=== PATIENT | male | born 1950 | race Caucasian/White ===

== ENCOUNTER → 2022-12-08 | Outpatient (CLI) | payer MEDICARE ==
--- NOTE | 2022-12-08 12:11 | P.PN ---
Subjective DATE: 12/08/2022 FOLLOW UP VISIT. Patient with obstructive sleep apnea hypopnea syndrome return to sleep center for follow-up visit. Recently patient had sleep study which documented obstructive sleep apnea hypopnea syndrome. Patient was initiated on PAP therapy and today is first visit after treatment was started. Patient was able to use PAP equipment every night for the whole night. I explained to the patient is also sleep studies in details. The patient does not have significant problems with the mask, PAP pressure and humidification. [place] sleepiness scale is 3, which is normal. I checked information from PAP unit. PAP unit pressure 5-15, average 13.0 cm H2O. Usage is 90% and 83 % for more then 4 hours, average 6.5 hours per night. Leak is 14.2 l/m, which is in acceptable range. Apnea Hypopnea Index is 3.1, which is normal. MEDICATIONS:1. Isosorbide 30 mg once a day 2. Atorvastatin 20 mg once a day 3. Metoprolol 50 mg once a day 4. Lisinopril 5 mg once a day 5. Aspirin 81 mg once a day During physical exam: GENERAL: A pleasant patient without any distress. VITAL SIGNS: BP 147/72, HR 50, RR 16 , weight 202, temperature 97.8, oxygen saturation at room air 98% . HEENT: PERRLA, EOMI.low position of soft palate, Mallapati 4 . NECK: Supple. No JVD. LUNGS: Clear to percussion and to auscultation. Good air exchange. No wheezing or rhonchi. HEART: S1, S2 regular. ABDOMEN: Soft and nontender. Slightly obese EXTREMITIES: No clubbing or cyanosis. LOSS MITIGATION SPECIALIST: Awake, alert, and oriented x3. No focal deficit. Impressions: 1. Obstructive sleep apnea-hypopnea syndrome. Patient demonstrated great compliance with treatment, benefiting from treatment. 2. Hypertension. 3. Mild obesity. 4. Coronary artery disease status post heart attack in 2004. 5. Status post surgical treatment for melanoma on the back in 1997. 6. Status post right hip replacement in 2017. Plan: 1. Continue using PAP equipment every night for the whole night. 2. To change air filter at least 1-2 times per month. 3. PAP unit should stay lower then position of the head. 4. Advised patient to remove all remaining water from humidifier canister daily and make it dry after each usage. Refill canister with fresh distilled water before each usage. 5. Sleep hygiene with regular time in bed for at least 8 hours. 6. Precautions related to driving. No driving if feel any sleepiness. 7. I will maintain prescription for PAP supplies including mask, tube, filters. 8. Follow up visit in 6 months or earlier if patient has any problems. 9. Watching weight. Thank you very much for allowing me to participate in the management of your patient. Erich Rider MD, PhD, FAASM. Diplomat of [place] [employer], Sleep Medicine Board by [place] [employer] Lap Runner of [facility] [place]
== END ==
LOC: 3 N SLEEP 11:34
PROVIDERS: ATTEND Internal Medicine
DX: G47.33 Obstructive sleep apnea (adult) (pediatric) (principal); I10 Essential (primary) hypertension; E66.9 Obesity, unspecified; I25.10 Atherosclerotic heart disease of native coronary artery without angina pectoris; Z96.641 Presence of right artificial hip joint; Z98.890 Other specified postprocedural states; Z79.899 Other long term (current) drug therapy; M19.079 Primary osteoarthritis, unspecified ankle and foot
CPT/HCPCS: 99212

== ENCOUNTER → 2023-06-15 | Outpatient (CLI) | payer MEDICARE ==
--- NOTE | 2023-06-15 11:12 | P.PN ---
Subjective DATE: 06/15/2023 FOLLOW UP VISIT. Patient with obstructive sleep apnea hypopnea syndrome return to sleep center for follow-up visit. Information from previous visit have been reviewed. Patient is using PAP equipment every night for the whole night, getting PAP supplies in time. Patient has mild irritation from the mask on the skin of the face. [place] sleepiness scale is 5, which is normal. I checked information from PAP unit. PAP unit pressure 5-13, average 14.3 cm H2O. Usage is 67 % for more then 4 hours, average 6.3 hours per night. Leak is 2.9 l/m, which is in acceptable range. Apnea Hypopnea Index is increased to 9.0, central 2.3, obstructive 3.6. During previous visit with the same parameters over CPAP apnea-hypopnea index was 3.1. No significant changes of weight. MEDICATIONS:1. Isosorbide 30 mg once a day 2. Atorvastatin 20 mg once a day 3. Metoprolol 50 mg once a day 4. Lisinopril 5 mg once a day 5. Niacinomide 500 mg once a day During physical exam: GENERAL: A pleasant patient without any distress. VITAL SIGNS: BP 177/87, HR 50, RR 18 , weight 201.0, temperature 97.4, oxygen saturation at room air 99 % . HEENT: PERRLA, EOMI.low position of soft palate, Mallapati[] . NECK: Supple. No JVD. LUNGS: Clear to percussion and to auscultation. Good air exchange. No wheezing or rhonchi. HEART: S1, S2 regular. ABDOMEN: Soft and nontender.[] EXTREMITIES: No clubbing or cyanosis. CENTERLESS GRINDING MACHINE ADJUSTER: Awake, alert, and oriented x3. No focal deficit. Impressions: 1. Obstructive sleep apnea-hypopnea syndrome. Patient demonstrated borderline compliance with treatment, benefiting from treatment. 2. Hypertension. 3. Coronary disease, status post heart attack in 2004. 4. Status post surgical treatment for melanoma on the back in 1997. 5. Status post right hip replacement in 2017. 6. Mild obesity, no significant changes of weight. I increased pressure in CPAP unit to the range 5-17 cm of water. Plan: 1. Continue using PAP equipment every night for the whole night. Prescription for different type of the fullface mask Air Touch F-20. Patient may use also linens under the mask. 2. To change air filter at least 1-2 times per month. 3. PAP unit should stay lower then position of the head. 4. Advised patient to remove all remaining water from humidifier canister daily and make it dry after each usage. Refill canister with fresh distilled water before each usage. 5. Sleep hygiene with regular time in bed for at least 8 hours. 6. Precautions related to driving. No driving if feel any sleepiness. 7. I will maintain prescription for PAP supplies including mask, tube, filters. 8. Follow up visit in 4 months or earlier if patient has any problems. 9. Watching and losing weight. Thank you very much for allowing me to participate in the management of your patient. Erich Rider MD, PhD, FAASM. Diplomat of [place] [employer], Sleep Medicine Board by [place] [employer] Pumper Hand of [facility] [place]
== END ==
LOC: 3 N SLEEP 10:35
PROVIDERS: ATTEND Internal Medicine
DX: G47.33 Obstructive sleep apnea (adult) (pediatric) (principal); E66.9 Obesity, unspecified; I10 Essential (primary) hypertension; I25.10 Atherosclerotic heart disease of native coronary artery without angina pectoris; I25.2 Old myocardial infarction; Z85.820 Personal history of malignant melanoma of skin; Z96.641 Presence of right artificial hip joint; Z99.89 Dependence on other enabling machines and devices; Z79.899 Other long term (current) drug therapy
CPT/HCPCS: 99212

== ENCOUNTER → 2023-11-03 | Outpatient (CLI) | payer MEDICARE ==
[2023-11-03 12:24] VITALS: BP 166/81; PULSE 58; RESP 16; TEMP 98.2
--- NOTE | 2023-11-03 12:43 | P.PN ---
Subjective DATE: 11/03/2023 FOLLOW UP VISIT. Patient with obstructive sleep apnea hypopnea syndrome return to sleep center for follow-up visit. Information from previous visit have been reviewed. Patient is using PAP equipment every night for the whole night, getting PAP supplies in time. Patient has discomfort related to the headgear of his mask in the ear area. [place] sleepiness scale is 5, which is normal. I checked information from PAP unit. PAP unit pressure 5-17, average 13.7 cm H2O. Usage is 87% and 80% for more then 4 hours, average 6 hours per night. Leak is 15.3 l/m, which is in acceptable range. Apnea Hypopnea Index is 4.4, which is normal. MEDICATIONS:1. Isosorbide 30 mg once a day 2. Atorvastatin 20 mg once a day 3. Metoprolol 50 mg once a day 4. Lisinopril 5 mg once a day During physical exam: GENERAL: A pleasant patient without any distress. VITAL SIGNS: Please see below. HEENT: PERRLA, EOMI.low position of soft palate, Mallapati 3 . NECK: Supple. No JVD. LUNGS: Clear to percussion and to auscultation. Good air exchange. No wheezing or rhonchi. HEART: S1, S2 regular. ABDOMEN: Soft and nontender.[] EXTREMITIES: No clubbing or cyanosis. ATHLETIC DIRECTOR: Awake, alert, and oriented x3. No focal deficit. Impressions: 1. Obstructive sleep apnea-hypopnea syndrome. Patient demonstrated good compliance with treatment, benefiting from treatment. 2. Mild obesity, BMI 34.1. 3. Hypertension. 4. Coronary artery disease, status post heart attack in 2004. 5. Status post surgical treatment for melanoma on the back. 6. Status post right hip replacement. Plan: 1. Continue using PAP equipment every night for the whole night. 2. To change air filter at least 1-2 times per month. 3. PAP unit should stay lower then position of the head. 4. Advised patient to remove all remaining water from humidifier canister daily and make it dry after each usage. Refill canister with fresh distilled water before each usage. 5. Sleep hygiene with regular time in bed for at least 8 hours. 6. Precautions related to driving. No driving if feel any sleepiness. 7. I will maintain prescription for PAP supplies including mask, tube, filters. 8. Watching and losing weight. 9. Follow up visit in 6 months or earlier if patient has any problems. Thank you very much for allowing me to participate in the management of your patient. Erich Rider MD, PhD, FAASM. Diplomat of [place] [employer], Sleep Medicine Board by [place] Stripper Apprentice of [facility] [place] Objective - Vital Signs Vital signs: Vital Signs Temp 98.2 F 11/03/23 11:44 Pulse 58 L 11/03/23 11:44 Resp 16 11/03/23 11:44 BP 166/81 11/03/23 11:44 Pulse Ox 97 11/03/23 11:44 FiO2 Intake & Output 11/02/23 11/03/23 11/03/23 18:59 06:59 18:59 Weight 91.626 kg
== END ==
LOC: 3 N SLEEP 11:16
PROVIDERS: ATTEND Internal Medicine
DX: G47.33 Obstructive sleep apnea (adult) (pediatric) (principal); E66.9 Obesity, unspecified; I10 Essential (primary) hypertension; I25.10 Atherosclerotic heart disease of native coronary artery without angina pectoris; I25.2 Old myocardial infarction; Z85.820 Personal history of malignant melanoma of skin; Z96.641 Presence of right artificial hip joint; Z68.34 Body mass index [BMI] 34.0-34.9, adult; Z79.899 Other long term (current) drug therapy; Z99.89 Dependence on other enabling machines and devices
CPT/HCPCS: 99212

== ENCOUNTER → 2024-05-30 | Outpatient (CLI) | payer MEDICARE ==
[2024-05-30 11:16] VITALS: BP 178/74; PULSE 58; RESP 16; TEMP 97.5
--- NOTE | 2024-05-30 11:37 | P.PROGSL ---
Subjective DATE: 05/30/2024 FOLLOW UP VISIT. Patient with obstructive sleep apnea hypopnea syndrome return to sleep center for follow-up visit. Information from previous visit have been reviewed. Patient is using PAP equipment every night for the whole night, getting PAP supplies in time. The patient does not have significant problems with the mask, PAP unit and humidification. [place] sleepiness scale is 5, which is normal. I checked information from PAP unit. PAP unit pressure 5-17, average 13.4 cm H2O. Usage is 90% for more then 4 hours, average 6.2 hours per night. Leak is 16 l/m, which is in acceptable range. Apnea Hypopnea Index is 2.0, which is normal. MEDICATIONS have been reviewed, please see below. During physical exam: GENERAL: A pleasant patient without any distress. VITAL SIGNS: Please see below, weight is 208 lbs. HEENT: PERRLA, EOMI.low position of soft palate, Mallapati 3. NECK: Supple. No JVD. LUNGS: Clear to percussion and to auscultation. Good air exchange. No wheezing or rhonchi. HEART: S1, S2 regular. ABDOMEN: Soft and nontender. Obese EXTREMITIES: No clubbing or cyanosis. FREIGHT CLERK: Awake, alert, and oriented x3. No focal deficit. Impressions: 1. Obstructive sleep apnea-hypopnea syndrome. Patient demonstrated good compliance with treatment, benefiting from treatment. 2. Hypertension. 3. Coronary artery disease, status post heart attack in 2004. 4. Mild obesity, BMI 35.1. 5. Status post surgical treatment for melanoma located on the back. 6. Status post right hip replacement. Plan: 1. Continue using PAP equipment every night for the whole night. 2. Sleep hygiene with regular time in bed for at least 7.5-8 hours 3. PAP unit should stay lower then position of the head. 4. Advised patient to remove all remaining water from humidifier canister daily and make it dry after each usage. Refill canister with fresh distilled water before each usage. 5. Watching and losing weight. 6. Precautions related to driving. No driving if feel any sleepiness. 7. I will maintain prescription for PAP supplies including mask, tube, filters. 8. Follow up visit in 8 months or earlier if patient has any problems. Thank you very much for allowing me to participate in the management of your patient. Erich Rider MD, PhD, FAASM. Diplomat of [place] [employer], Sleep Medicine Board by [place] [employer] Italian Teacher of [facility] [place] Objective - Vital Signs Vital Signs: Vital Signs Temp 97.5 F L 05/30/24 11:14 Pulse 58 L 05/30/24 11:14 Resp 16 05/30/24 11:14 BP 178/74 05/30/24 11:14 Pulse Ox 99 05/30/24 11:14 FiO2 Intake & Output 05/29/24 05/30/24 05/30/24 18:59 06:59 18:59 Weight 94.347 kg Home Medications: Home Medications Medication Instructions Recorded Confirmed Type Atorvastatin [Lipitor] 20 mg PO DAILY 11/03/23 11/03/23 History Isosorbide Mononitrate ER [Imdur] 30 mg PO DAILY 11/03/23 05/30/24 History Lisinopril-Hctz 20-25 mg 1 tab PO DAILY 11/03/23 05/30/24 History [Zestoretic 20-25] Niacinamide 500 mg PO 11/03/23 History Aspirin EC [Ecotrin Low Dose] 81 mg PO DAILY 05/30/24 05/30/24 History Nitroglycerin 0.4 mg SL DIRECTED PRN 05/30/24 05/30/24 History Rosuvastatin Calcium [Ezallor 20 mg PO DAILY 05/30/24 05/30/24 History Sprinkle] carvediloL [Coreg] 12.5 mg PO BID 05/30/24 05/30/24 History
== END ==
LOC: 3 N SLEEP 11:06
PROVIDERS: ATTEND Internal Medicine
DX: G47.33 Obstructive sleep apnea (adult) (pediatric) (principal); I10 Essential (primary) hypertension; I25.10 Atherosclerotic heart disease of native coronary artery without angina pectoris; E66.9 Obesity, unspecified; Z96.641 Presence of right artificial hip joint; Z99.89 Dependence on other enabling machines and devices; Z98.890 Other specified postprocedural states; Z85.828 Personal history of other malignant neoplasm of skin; Z86.74 Personal history of sudden cardiac arrest; Z68.35 Body mass index [BMI] 35.0-35.9, adult; Z79.899 Other long term (current) drug therapy
CPT/HCPCS: 99212